=== PATIENT | female | born 2000 | race Caucasian/White ===

== ENCOUNTER 2018-08-14 03:50 | Emergency (ER) | payer OTHER ==
[2018-08-14] MEDS ORDERED: Augmentin 875-125 Tablet ONE (04:19)
[2018-08-14] MEDS ORDERED: Tylenol #3 Tablet ONE (04:19)
[2018-08-14] MEDS: Augmentin 875-125 Tablet PO ONE (04:20)
[2018-08-14] MEDS: Tylenol #3 Tablet PO ONE (04:20)
--- NOTE | 2018-08-14 04:23 | ERPHSYRPT ---
- History of Present Illness Time Seen by Provider: 08/14/18 04:03 Source: patient Exam Limitations: clinical condition Patient Subjective Stated Complaint: pt states she has been having pain in her rt ear, increasing tonight Triage Nursing Assessment: pt alert and oriented, answers questions approp, respirations nonlabored with lungs. pt ambulatory with steady gait noted. no drainage noted from ear. Physician History: PATIENT COMPLAINS OF A RIGHT EAR ACHE FOR 4 DAYS. DENIES SORETHROAT, NASAL CONGESTION, FEVER, CHILLS OR DRAINAGE FROM HER EAR. Timing/Duration: gradual onset Severity: moderate ENT Location: ear (R) Prearrival Treatment: no prearrival treatment Modifying Factors: Improves With: nothing Associated Symptoms: denies symptoms Allergies/Adverse Reactions: No Known Drug Allergies Allergy (Verified 08/14/18 04:10) Home Medications: Dextroamphetamine/Amphetamine [Dextroamp-Amphetamin 30 mg Tab] 1 tab PO BID 10/31 [History] Naproxen 375 mg [Naprosyn 375 mg] 375 mg PO BID 08/14/18 [History] Hx Tetanus, Diphtheria Vaccination/Date Given: Yes Hx Influenza Vaccination/Date Given: Yes Hx Pneumococcal Vaccination/Date Given: No Immunizations Up to Date: Yes - Review of Systems Constitutional: No Symptoms Eyes: No Symptoms Ears, Nose, & Throat: Ear Pain Respiratory: No Symptoms Cardiac: No Symptoms Genitourinary Symptoms: No Symptoms Musculoskeletal: No Symptoms Psychological: No Symptoms Endocrine: No Symptoms - Past Medical History Pertinent Past Medical History: Yes Neurological History: No Pertinent History, Other Cardiac History: No Pertinent History Respiratory History: Asthma Endocrine Medical History: No Pertinent History Musculoskeletal History: No Pertinent History Female Reproductive Disorders: Menstrual Problems, Other Other Medical History: ADD, PCOS - Past Surgical History Past Surgical History: No - Social History Smoking Status: Never smoker Exposure to second hand smoke: Yes Drug Use: none Patient Lives Alone: No - Female History Hx Last Menstrual Period: october- irregular Hx Now: No - Nursing Vital Signs Nursing Vital Signs: Initial Vital Signs Temperature 98.3 F 08/14/18 03:57 Pulse Rate 95 H 08/14/18 03:57 Respiratory Rate 18 08/14/18 03:57 Blood Pressure 141/87 08/14/18 03:57 O2 Sat by Pulse Oximetry 98 08/14/18 03:57 Pain Scale Pain Intensity 8 - Physical Exam General Appearance: no apparent distress Eye Exam: bilateral eye: normal inspection, PERRL Ear Exam: right ear: TM red, left ear: TM normal, bilateral ear: auricle normal , canal normal Nasal Exam: normal inspection Throat Exam: normal, pharynx normal Neck Exam: normal inspection, non-tender Cardiovascular/Respiratory Exam: chest non-tender, normal breath sounds Neurologic Exam: alert, oriented x 3 SpO2 Interpretation: normal SpO2: 98 Ordered Tests: Medication Summary Generic Name Dose Route Start Last Admin Trade Name Freq PRN Reason Stop Dose Admin Amoxicillin/Clavulanate Potassium 875 mg 08/14/18 04:16 Augmentin 875-125 Tablet PO 08/14/18 04:17 STAT ONE - Progress Progress: pain not gone completely Progress Note: 08/14/18 04:20 ADMINISTERED TYLENOL #3 AND AUGMENTIN 875MG ORALLY Counseled pt/family regarding: lab results, diagnosis - Departure Time of Disposition: 04:30 Departure Disposition: Home Clinical Impression: RIGHT OTITIS MEDIA Condition: Stable Critical Care Time: No Referrals: JAGDEEP DESHPANDE [Primary Care Provider] - Additional Instructions: ANTIBIOTIC AUGMENTIN 875MG TWICE DAILY FOR 10 DAYS. TYLENOL #3 EVERY 6 HOURS NEEDED FOR PAIN. CONSULT YOUR PRIMARY CARE PROVIDER FOR FOLLOWUP IN 1 WEEK. Prescriptions: Codeine Phosphate/APAP #3 [Tylenol #3 Tablet] 1 tab PO Q6HPRN PRN #8 tablet PRN Reason: Pain Amox Tr/Potass Clav. 875 mg [Augmentin 875-125 Tablet] 875 mg PO BID #20 tablet
[2018-08-14 04:47] VITALS: BP 133/74; PULSE 78; O2SAT 96
== END 2018-08-14 04:46 | disposition home or self-care (01) ==
LOC: ED 03:50
DX: H66.91 Otitis media, unspecified, right ear (principal)
CPT/HCPCS: 99283; A9270-GY

== ENCOUNTER 2018-08-21 04:47 | Emergency (ER) | payer OTHER ==
[2018-08-21 05:01] VITALS: O2SAT 98
--- NOTE | 2018-08-21 05:14 | ERPHSYRPT ---
- History of Present Illness Time Seen by Provider: 08/21/18 05:09 Source: patient, family Exam Limitations: no limitations Patient Subjective Stated Complaint: pt states she has had an earache for over a week and has not gotten any better with antibiotics. states pain is now around eye and down the rit side of her face as well Triage Nursing Assessment: pt alert and oriented, answers questions approp. pt ambulatory with steady gait ntoed. respirations nonlabored with lungs cta. no drainage noted from ear. pt reports no difficulty hearing. Physician History: pt continues to have right ear pain even on ab- tm appears dull but not red , canal is some swollen but only mildly tender, no jaw tenderness or symptoms, pharynx clear and ant neck nontender, digastric triangle is soft and no sore throat symptoms. no resp symptoms no cp, or abd pain no meningismus. Timing/Duration: days Severity: moderate ENT Location: ear (R) Prearrival Treatment: prescription meds Modifying Factors: Improves With: nothing Associated Symptoms: ear pain (R), No cough, No ear drainage, No facial pain/ swelling, No headache, No jaw pain, No poor fluid intake, No poor solids intake , No sore throat, No tooth pain Allergies/Adverse Reactions: No Known Drug Allergies Allergy (Verified 08/21/18 05:02) Home Medications: Dextroamphetamine/Amphetamine [Dextroamp-Amphetamin 30 mg Tab] 1 tab PO BID 10/31 [History] Naproxen 375 mg [Naprosyn 375 mg] 375 mg PO BID 08/14/18 [History] Hx Tetanus, Diphtheria Vaccination/Date Given: Yes Hx Influenza Vaccination/Date Given: Yes Hx Pneumococcal Vaccination/Date Given: No - Review of Systems Constitutional: No Fever, No Chills Eyes: No Symptoms Ears, Nose, & Throat: Ear Pain Respiratory: No Cough, No Dyspnea Cardiac: No Chest Pain, No Edema, No Syncope Abdominal/Gastrointestinal: No Abdominal Pain, No Nausea, No Vomiting, No Diarrhea Genitourinary Symptoms: No Dysuria Musculoskeletal: No Back Pain, No Neck Pain Skin: No Rash Neurological: No Dizziness, No Focal Weakness, No Sensory Changes Psychological: No Symptoms Endocrine: No Symptoms All Other Systems: Reviewed and Negative - Past Medical History Pertinent Past Medical History: Yes Neurological History: No Pertinent History, Other Cardiac History: No Pertinent History Respiratory History: Asthma Endocrine Medical History: No Pertinent History Musculoskeletal History: No Pertinent History Female Reproductive Disorders: Menstrual Problems, Other Other Medical History: ADD, PCOS - Past Surgical History Past Surgical History: No - Social History Smoking Status: Never smoker Exposure to second hand smoke: Yes Drug Use: none Patient Lives Alone: No - Female History Hx Last Menstrual Period: 6 mos- irreg Hx Now: No - Nursing Vital Signs Nursing Vital Signs: Initial Vital Signs Temperature 97.8 F 08/21/18 04:54 Pulse Rate 68 08/21/18 04:54 Respiratory Rate 18 08/21/18 04:54 Blood Pressure 130/90 08/21/18 04:54 O2 Sat by Pulse Oximetry 98 08/21/18 04:54 Pain Scale Pain Intensity 10 - Physical Exam General Appearance: no apparent distress, alert Eye Exam: bilateral eye: normal inspection, PERRL, EOMI Ear Exam: right ear: TM dull, left ear: canal normal, TM normal, bilateral ear: auricle normal Nasal Exam: normal inspection Throat Exam: pharynx normal, moist mucus membranes, No dental tenderness, No mandibular swelling, No maxillary swelling, No pharynx swelling, No pharynx tenderness, No tongue swollen, No tonsillar exudate, No trismus, No uvula swelling, No voice changes Neck Exam: supple Cardiovascular/Respiratory Exam: normal breath sounds, regular rate/rhythm Abdominal Exam: non-tender, soft Neurologic Exam: alert, oriented x 3, sensation nml, No motor deficits Skin Exam: normal color, warm, dry SpO2: 98 Oxygen Delivery: Room Air - Course Nursing assessment & vital signs reviewed: Yes - Progress Progress: improved, re-examined Counseled pt/family regarding: diagnosis, need for follow-up - Departure Time of Disposition: 05:13 Departure Disposition: Home Clinical Impression: Persistent acute otitis media Condition: Good Critical Care Time: No Referrals: JAGDEEP DESHPANDE [Primary Care Provider] - Instructions: Ear Infections (Otitis Media) (DC), Outer Ear Infection (DC) Additional Instructions: although this may be a persisting ear infection , further evaluation by an ENT specialist would be a good idea and they may require furhter types of tests. return meantime if any vomiting, fever, trouble swallowing or other concerns. Prescriptions: Cefdinir [Omnicef] 300 mg PO BID #20 capsule Ciprofloxacin/Hydrocortisone [Cipro Hc Otic Suspension] 10 ml OT BID #1 drops.susp Hydrocodone Bit/Acetaminophen [[place] 5-325 Tablet] 1 each PO Q4-6HPRN PRN #14 tablet MDD 4 PRN Reason: Pain
[2018-08-21 05:45] VITALS: BP 107/76; PULSE 65
== END 2018-08-21 05:44 | disposition home or self-care (01) ==
LOC: ED 04:47
DX: H66.91 Otitis media, unspecified, right ear (principal)
CPT/HCPCS: 99283

== ENCOUNTER 2020-03-28 16:23 | Emergency (ER) | payer OTHER ==
[2020-03-28] MEDS ORDERED: BABY ASPIRIN 81 MG CHEW PO ONE (16:51)
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
[2020-03-28 17:51] LABS: ALBUMIN 4.4 g/dL (3.5-5.0); ALKALINE PHOSPHATASE 98 U/L (38-126); ANION GAP 12.2 MEQ/L (5-15); BLOOD UREA NITROGEN 11 mg/dL (7-17); CHLORIDE 108 mmol/L (98-107); Calcium 9.4 mg/dL (8.4-10.2); Carbon Dioxide 23 mmol/L (22-30); Creatinine 1 0.69 mg/dL (0.52-1.04); Glucose 90 mg/dL (74-106); Potassium 4.1 mmol/L (3.5-5.1); SGOT/AST 39 U/L (14-36); SGPT/ALT 54 U/L (0-35); SODIUM 139 mmol/L (137-145); Total Protein 7.8 g/dL (6.3-8.2)
[2020-03-28 17:53] LABS: Absolute Neutrophil Ct (ANC) 6.66 (1.4-6.9); BASOPHIL % 0.3 % (0.0-0.4); Basophil (Absolute #) 0.03 (0-0.4); Eosinophil % 2.7 % (0.00-5.0); Eosinophil (Absolute #) 0.26 (0-0.5); Hematocrit 41.5 % (35-47); Hemoglobin 13.7 gm/dl (12.0-16.0); Lymphocyte (Absolute #) 2.36 (1.0-4.6); Lymphocytes % 24.1 % (24.0-44.0); Mean Cell Volume 86.8 fl (78-100); Mean Corpuscular Hemoglobin 28.7 pg (26-32); Mean Platelet Volume 9.8 fl (7.5-11.0); Monocytes % 5.1 % (0.0-12.0); Neutrophil % 67.8 % (36.0-66.0); Platelet Count 363 K/mm3 (150-450); Red Blood Count 4.78 M/mm3 (4.1-5.4); Red Cell Distribution Width 13.9 % (11.5-14.0); White Blood Count 9.8 K/mm3 (4.0-10.5)
[2020-03-28 18:27] VITALS: O2SAT 97
[2020-03-28 18:39] VITALS: BP 104/70; PULSE 77
--- NOTE | 2020-03-29 08:34 | XRAY ---
Indication: Left chest pain and left arm numbness. Comparison: None Portable chest demonstrates normal heart, lungs, and bony thorax.
== END 2020-03-28 18:40 | disposition home or self-care (01) ==
LOC: ED 16:23
DX: R07.9 Chest pain, unspecified (principal)
CPT/HCPCS: 36000; 36415; 71045; 80053; 84484; 85025; 85379; 93005; 93041; 94760; 99284; A9270-GY

== ENCOUNTER 2020-04-27 17:29 | Emergency (ER) | payer OTHER ==
[2020-04-27 17:57] LABS: Absolute Neutrophil Ct (ANC) 6.61 (1.4-6.9); BASOPHIL % 0.5 % (0.0-0.4); Basophil (Absolute #) 0.05 (0-0.4); Eosinophil % 3.5 % (0.00-5.0); Eosinophil (Absolute #) 0.34 (0-0.5); Hematocrit 40.7 % (35-47); Hemoglobin 13.5 gm/dl (12.0-16.0); Lymphocytes % 24.4 % (24.0-44.0); Mean Cell Volume 85.3 fl (78-100); Mean Corpuscular Hemoglobin 28.3 pg (26-32); Mean Corpuscular Hgb Concent. 33.2 g/dl (32-36); Mean Platelet Volume 9.6 fl (7.5-11.0); Monocyte (Absolute #) 0.43 (0.0-1.3); Monocytes % 4.4 % (0.0-12.0); Neutrophil % 67.2 % (36.0-66.0); Platelet Count 344 K/mm3 (150-450); Red Blood Count 4.77 M/mm3 (4.1-5.4); Red Cell Distribution Width 13.3 % (11.5-14.0); White Blood Count 9.8 K/mm3 (4.0-10.5)
[2020-04-27 18:01] LABS: Appearance SLIGHTLY CLOUDY (CLEAR); Bilirubin NEGATIVE (NEGATIVE); Blood SMALL Ery/ul (0-5); Epithelial Cells RARE /HPF (FEW); Glucose NEGATIVE (NEGATIVE); Ketones NEGATIVE (NEGATIVE); Leukocyte Esterase NEGATIVE (NEGATIVE); Mucus SLIGHT /HPF (NEGATIVE); Nitrite NEGATIVE (NEGATIVE); Protein,Urine Dip NEGATIVE (Negative); RBC 0-2 /HPF (0-2); Specific Gravity 1.016 (1.005-1.025); Urobilinogen NEGATIVE mg/dL (0-1)
[2020-04-27 18:08] LABS: ALBUMIN 4.3 g/dL (3.5-5.0); ALKALINE PHOSPHATASE 101 U/L (38-126); ANION GAP 14.3 MEQ/L (5-15); BLOOD UREA NITROGEN 10 mg/dL (7-17); CHLORIDE 106 mmol/L (98-107); Calcium 9.7 mg/dL (8.4-10.2); Carbon Dioxide 22 mmol/L (22-30); Creatinine 1 0.55 mg/dL (0.52-1.04); Glucose 124 mg/dL (74-106); Potassium 3.9 mmol/L (3.5-5.1); SGOT/AST 34 U/L (14-36); SGPT/ALT 48 U/L (0-35); SODIUM 139 mmol/L (137-145); Total Protein 7.4 g/dL (6.3-8.2)
[2020-04-27 18:09] LABS: ACETAMINOPHEN < 10 ug/ml (10-30); ETHYL ALCOHOL < 10 mg/dL (0-10); SALICYLATE < 1.0 mg/dL (2-20)
[2020-04-27 18:12] LABS: Amphetamine,Urine NEGATIVE (NEGATIVE); Barbiturate,Urine NEGATIVE (NEGATIVE); Benzodiazepine,Urine NEGATIVE (NEGATIVE); Cocaine,Urine NEGATIVE (NEGATIVE); Methadone,Urine NEGATIVE (NEGATIVE); Opiate,Urine NEGATIVE (NEGATIVE); PCP,Urine NEGATIVE (NEGATIVE); THC,Urine NEGATIVE (NEGATIVE)
--- NOTE | 2020-04-27 18:22 | ERPHSYRPT ---
- History of Present Illness Time Seen by Provider: 04/27/20 17:38 Source: patient, EMS Exam Limitations: no limitations Patient Subjective Stated Complaint: PT states "I was really close to taking all my meds and overdosing. I want help. I am afraid I will kill myself." Triage Nursing Assessment: Pt presented alert and oriented X 3, skin pwd Pt ambulates with an upright steady gait, able to speak in clear full sentences pt in no apparent respiratory distress. Pt slightly anxious. Physician History: 19 years old female with history of anxiety depression is brought in the ER via EMS with chief complaint of suicidal ideations. Patient reports she was having low mood since yesterday and prior to arrival she was planning on ingesting all her medication to put her to sleep forever. She reports feeling hopeless and helpless at times, does not see things will get better and near future. Although patient could not tell me exact reason why she is feeling depressed. Denies any homicidal ideations. Denies any drug or alcohol abuse. Timing/Duration: today, gradual onset, worse Severity of Symptoms-Max: moderate Severity of Symptoms-Current: moderate Suicidal thoughts: specific plan Associated Symptoms: anxiety, depressed Previous symptoms: same symptoms as today Allergies/Adverse Reactions: sweet potato Allergy (Intermediate, Verified 04/27/20 17:39) Hives cephalexin [From Keflex] Adverse Reaction (Intermediate, Verified 04/27/20 17:39) nausea vomiting Home Medications: Albuterol 2.5 mg/3 ml Neb [Proventil 2.5 mg/3 ml Neb] 2.5 mg IH Q4HPRN PRN 04/19/19 [History] Albuterol 8 gm Mdi Hfa [Ventolin Hfa MDI] 18 gm IH Q4H PRN PRN 04/19/19 [History] Sertraline HCl [Zoloft] 20 mg PO DAILY 04/19/19 [History] Cholecalciferol (Vitamin D3) [Vitamin D] 1,000 unit PO WEEKLY 06/15/19 [History] Quetiapine Fumarate [Seroquel] 25 mg PO HS 06/15/19 [History] Dicyclomine HCl 20 mg [Bentyl 20 mg] 20 mg PO DAILY 04/27/20 [History] Loratadine 10 mg PO DAILY 04/27/20 [History] Hx Tetanus, Diphtheria Vaccination/Date Given: No Hx Influenza Vaccination/Date Given: No Hx Pneumococcal Vaccination/Date Given: No Immunizations Up to Date: Yes Travel Risk - International Travel Have you traveled outside of the country in past 3 weeks: No - Coronavirus Screening Are you exhibiting any of the following symptoms?: No Close contact with a COVID-19 positive Pt in past 14-21 Days: No - Past Medical History Pertinent Past Medical History: Yes Neurological History: Other ENT History: Other Cardiac History: No Pertinent History Respiratory History: Asthma Endocrine Medical History: No Pertinent History Musculoskeletal History: No Pertinent History GI Medical History: Gallbladder Disease History: No Pertinent History Psycho-Social History: Anxiety, Bipolar, Depression Female Reproductive Disorders: Menstrual Problems, Other Other Medical History: ADD,ADHD, Autism,Asburgers syndrome,bipolar,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 PCOS. gender dysphoria. angina - Past Surgical History Past Surgical History: Yes Neuro Surgical History: No Pertinent History Cardiac: No Pertinent History Respiratory: No Pertinent History Gastrointestinal: No Pertinent History Genitourinary: No Pertinent History Musculoskeletal: Orthopedic Surgery Female Surgical History: No Pertinent History Other Surgical History: Right knee miniscus repair endoscopy - Social History Smoking Status: Never smoker Exposure to second hand smoke: Yes Drug Use: none Patient Lives Alone: No - Female History Hx Last Menstrual Period: pcos Hx Now: No - Review of Systems Constitutional: No Symptoms Eyes: No Symptoms Ears, Nose, & Throat: No Symptoms Respiratory: No Symptoms Cardiac: No Symptoms Abdominal/Gastrointestinal: No Symptoms Genitourinary Symptoms: No Symptoms Musculoskeletal: No Symptoms Skin: No Symptoms Neurological: No Symptoms Psychological: Anxiety, Depression, Suicidal Ideations, No Homicidal Ideations Endocrine: No Symptoms Hematologic/Lymphatic: No Symptoms Immunological/Allergic: No Symptoms - Nursing Vital Signs Nursing Vital Signs: Initial Vital Signs Temperature 99.4 F 04/27/20 17:31 Pulse Rate 90 04/27/20 17:31 Respiratory Rate 22 04/27/20 17:31 Blood Pressure 160/92 04/27/20 17:31 O2 Sat by Pulse Oximetry 98 04/27/20 17:31 Pain Scale Pain Intensity 0 - Physical Exam General Appearance: no apparent distress, alert, anxiety Eyes, Ears, Nose, Throat Exam: normal ENT inspection, pharynx normal Neck Exam: normal inspection, supple, full range of motion Respiratory Exam: normal breath sounds, lungs clear Cardiovascular Exam: regular rate/rhythm, normal heart sounds Gastrointestinal/Abdominal Exam: soft, normal bowel sounds, No tenderness Neurological Exam: alert, 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, 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, oriented x 3, depressed affect Appearance: appropriate appearance, appropriate insight Behavior/Eye Contact/Speech: alert & cooperative, cooperative, normal speech, avoids eye contact Thoughts/Hallucinations: normal thought pattern, no apparent hallucination Skin Exam: normal color SpO2 Interpretation: normal SpO2: 98 O2 Delivery: Room Air Ordered Tests: Active Orders 24 hr Category Date Time Status ACETAMINOPHEN Stat Lab 04/27/20 17:45 Completed CBC W DIFF Stat Lab 04/27/20 17:45 Completed CMP Stat Lab 04/27/20 17:45 Completed ETHYL ALCOHOL Stat Lab 04/27/20 17:45 Completed HCG,QUALITATIVE URINE Stat Lab 04/27/20 17:45 Completed SALICYLATE Stat Lab 04/27/20 17:45 Completed UA W/RFX UR CULTURE Stat Lab 04/27/20 17:45 Completed Urine Triage Profile Stat Lab 04/27/20 17:45 Completed Lab/Rad Data: Laboratory Result Diagrams 04/27/20 17:45 04/27/20 17:45 Laboratory Results 04/27/20 04/27/20 04/27/20 Range/Units 17:45 17:45 17:45 WBC (4.0-10.5) K/mm3 RBC (4.1-5.4) M/mm3 Hgb (12.0-16.0) gm/dl Hct (35-47) % MCV (78-100) fl MCH (26-32) pg MCHC (32-36) g/dl RDW (11.5-14.0) % Plt Count (150-450) K/mm3 MPV (7.5-11.0) fl Gran % (36.0-66.0) % Eos # (Auto) (0-0.5) Absolute Lymphs (auto) (1.0-4.6) Absolute Monos (auto) (0.0-1.3) Lymphocytes % (24.0-44.0) % Monocytes % (0.0-12.0) % Eosinophils % (0.00-5.0) % Basophils % (0.0-0.4) % Absolute Granulocytes (1.4-6.9) Basophils # (0-0.4) Sodium (137-145) mmol/L Potassium (3.5-5.1) mmol/L Chloride (98-107) mmol/L Carbon Dioxide (22-30) mmol/L Anion Gap (5-15) MEQ/L BUN (7-17) mg/dL Creatinine (0.52-1.04) mg/dL Estimated GFR ML/MIN Glucose (74-106) mg/dL Calcium (8.4-10.2) mg/dL Total Bilirubin (0.2-1.3) mg/dL AST (14-36) U/L ALT (0-35) U/L Alkaline Phosphatase (38-126) U/L Serum Total Protein (6.3-8.2) g/dL Albumin (3.5-5.0) g/dL Urine Color YELLOW (YELLOW) Urine Appearance SLIGHTLY CLOUDY (CLEAR) Urine pH 6.0 (5-6) Ur Specific [place] 1.016 (1.005-1.025) Urine Protein NEGATIVE (Negative) Urine Ketones NEGATIVE (NEGATIVE) Urine Blood SMALL (0-5) Wade/ul Urine Nitrite NEGATIVE (NEGATIVE) Urine Bilirubin NEGATIVE (NEGATIVE) Urine Urobilinogen NEGATIVE (0-1) mg/dL Ur Leukocyte Esterase NEGATIVE (NEGATIVE) Urine WBC (Auto) NONE (0-5) /HPF Urine RBC (Auto) 0-2 (0-2) /HPF U Epithel Cells (Auto) RARE (FEW) /HPF Urine Bacteria (Auto) NONE (NEGATIVE) /HPF Urine Mucus (Auto) SLIGHT (NEGATIVE) /HPF Urine Culture Reflexed NO (NO) Urine Glucose NEGATIVE (NEGATIVE) mg/dL Urine HCG, Qual NEGATIVE (Negative) Salicylates (2-20) mg/dL Urine Opiates Level NEGATIVE (NEGATIVE) Ur Methadone NEGATIVE (NEGATIVE) Acetaminophen (10-30) ug/ml Urine Barbiturates NEGATIVE (NEGATIVE) Ur Phencyclidine (PCP) NEGATIVE (NEGATIVE) Urine Amphetamine NEGATIVE (NEGATIVE) U Benzodiazepine Level NEGATIVE (NEGATIVE) Urine Cocaine NEGATIVE (NEGATIVE) Urine Marijuana (THC) NEGATIVE (NEGATIVE) Ethyl Alcohol (0-10) mg/dL 04/27/20 04/27/20 Range/Units 17:45 17:45 WBC 9.8 (4.0-10.5) K/mm3 RBC 4.77 (4.1-5.4) M/mm3 Hgb 13.5 (12.0-16.0) gm/dl Hct 40.7 (35-47) % MCV 85.3 (78-100) fl MCH 28.3 (26-32) pg MCHC 33.2 (32-36) g/dl RDW 13.3 (11.5-14.0) % Plt Count 344 (150-450) K/mm3 MPV 9.6 (7.5-11.0) fl Gran % 67.2 H (36.0-66.0) % Eos # (Auto) 0.34 (0-0.5) Absolute Lymphs (auto) 2.40 (1.0-4.6) Absolute Monos (auto) 0.43 (0.0-1.3) Lymphocytes % 24.4 (24.0-44.0) % Monocytes % 4.4 (0.0-12.0) % Eosinophils % 3.5 (0.00-5.0) % Basophils % 0.5 (0.0-0.4) % Absolute Granulocytes 6.61 (1.4-6.9) Basophils # 0.05 (0-0.4) Sodium 139 (137-145) mmol/L Potassium 3.9 (3.5-5.1) mmol/L Chloride 106 (98-107) mmol/L Carbon Dioxide 22 (22-30) mmol/L Anion Gap 14.3 (5-15) MEQ/L BUN 10 (7-17) mg/dL Creatinine 0.55 (0.52-1.04) mg/dL Estimated GFR > 60.0 ML/MIN Glucose 124 H (74-106) mg/dL Calcium 9.7 (8.4-10.2) mg/dL Total Bilirubin 0.40 (0.2-1.3) mg/dL AST 34 (14-36) U/L ALT 48 H (0-35) U/L Alkaline Phosphatase 101 (38-126) U/L Serum Total Protein 7.4 (6.3-8.2) g/dL Albumin 4.3 (3.5-5.0) g/dL Urine Color (YELLOW) Urine Appearance (CLEAR) Urine pH (5-6) Ur Specific [place] (1.005-1.025) Urine Protein (Negative) Urine Ketones (NEGATIVE) Urine Blood (0-5) Wade/ul Urine Nitrite (NEGATIVE) Urine Bilirubin (NEGATIVE) Urine Urobilinogen (0-1) mg/dL Ur Leukocyte Esterase (NEGATIVE) Urine WBC (Auto) (0-5) /HPF Urine RBC (Auto) (0-2) /HPF U Epithel Cells (Auto) (FEW) /HPF Urine Bacteria (Auto) (NEGATIVE) /HPF Urine Mucus (Auto) (NEGATIVE) /HPF Urine Culture Reflexed (NO) Urine Glucose (NEGATIVE) mg/dL Urine HCG, Qual (Negative) Salicylates < 1.0 L (2-20) mg/dL Urine Opiates Level (NEGATIVE) Ur Methadone (NEGATIVE) Acetaminophen < 10 L (10-30) ug/ml Urine Barbiturates (NEGATIVE) Ur Phencyclidine (PCP) (NEGATIVE) Urine Amphetamine (NEGATIVE) U Benzodiazepine Level (NEGATIVE) Urine Cocaine (NEGATIVE) Urine Marijuana (THC) (NEGATIVE) Ethyl Alcohol < 10 (0-10) mg/dL - Progress Progress: unchanged Progress Note: 04/27/20 she is medically cleared. Evaluated by behavioral health and patient is accepted by Dr. Oglesby. Counseled pt/family regarding: lab results, diagnosis - Departure Departure Disposition: Transfer Clinical Impression: Depression with suicidal ideation Condition: Stable Critical Care Time: No Referrals: JAGDEEP DESHPANDE [Primary Care Provider] -
[2020-04-27 19:59] VITALS: BP 124/73; PULSE 86
[2020-04-27 23:38] VITALS: O2SAT 98
== END 2020-04-27 20:58 ==
LOC: ED 17:29
DX: F32.9 Major depressive disorder, single episode, unspecified (principal); R45.851 Suicidal ideations; Z79.899 Other long term (current) drug therapy
CPT/HCPCS: 36415; 80053; 80307; 81001; 84703; 85025; 99285; G0480

== ENCOUNTER 2020-05-13 22:10 | Emergency (ER) | payer OTHER ==
--- NOTE | 2020-05-13 22:17 | ERPHSYRPT ---
- History of Present Illness Source: patient, EMS Exam Limitations: no limitations Timing/Duration: today Severity of Symptoms-Max: mild Severity of Symptoms-Current: mild Suicidal thoughts: other (Specifically stating that she has had feelings of the suicidal ideation. However she is vague about a specific plan although she mentions that she might consider taking an overdose of her medication) Associated Symptoms: depressed, suicidal ideation Previous symptoms: same symptoms as today Hx Tetanus, Diphtheria Vaccination/Date Given: No Hx Influenza Vaccination/Date Given: No Hx Pneumococcal Vaccination/Date Given: No <RENETTA FAGAN - Last Filed: 05/14/20 06:52> <JOSE ALBERTO MCKINLEY - Last Filed: 05/14/20 10:11> - History of Present Illness Time Seen by Provider: 05/13/20 22:17 Physician History: This is a 19-year-old obese white female who has known history of depression with suicidal ideation in the past and is taking Zoloft and Seroquel medication, and presents with recurrent episode of depression suicidal ideation. Patient was relatively recently seen and discharged from [facility] psychiatric facility. Patient sees a psychiatrist from [facility] as an outpatient. Patient began having recurrent symptoms of suicidal ideation. She states that she does not have a specific plan but then states that she may take an excess amount of her medication. She also has some cutting issues to her right wrist. (RENETTA FAGAN) Allergies/Adverse Reactions: sweet potato Allergy (Intermediate, Verified 05/13/20 22:26) Hives cephalexin [From Keflex] Adverse Reaction (Intermediate, Verified 05/13/20 22:26) nausea vomiting Home Medications: Albuterol 2.5 mg/3 ml Neb [Proventil 2.5 mg/3 ml Neb] 2.5 mg IH Q4HPRN PRN 04/19/19 [History] Albuterol 8 gm Mdi Hfa [Ventolin Hfa MDI] 18 gm IH Q4H PRN PRN 04/19/19 [History] Sertraline HCl [Zoloft] 150 mg PO HS 04/19/19 [History] Cholecalciferol (Vitamin D3) [Vitamin D] 1,000 unit PO WEEKLY 06/15/19 [History] Quetiapine Fumarate [Seroquel] 50 mg PO HS 06/15/19 [History] Dicyclomine HCl 20 mg [Bentyl 20 mg] 20 mg PO QID PRN 04/27/20 [History] Loratadine 10 mg PO DAILY 04/27/20 [History] Travel Risk - International Travel Have you traveled outside of the country in past 3 weeks: No - Coronavirus Screening Are you exhibiting any of the following symptoms?: No Close contact with a COVID-19 positive Pt in past 14-21 Days: No <RENETTA FAGAN - Last Filed: 05/14/20 06:52> - Past Medical History Pertinent Past Medical History: Yes Neurological History: Other ENT History: Other Cardiac History: No Pertinent History Respiratory History: Asthma Endocrine Medical History: No Pertinent History Musculoskeletal History: No Pertinent History GI Medical History: Gallbladder Disease History: No Pertinent History Psycho-Social History: Anxiety, Bipolar, Depression Female Reproductive Disorders: Menstrual Problems, Other Other Medical History: ADD,ADHD, Autism,Asburgers syndrome,bipolar,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 PCOS. gender dysphoria. angina - Past Surgical History Past Surgical History: Yes Neuro Surgical History: No Pertinent History Cardiac: No Pertinent History Respiratory: No Pertinent History Gastrointestinal: No Pertinent History Genitourinary: No Pertinent History Musculoskeletal: Orthopedic Surgery Female Surgical History: No Pertinent History Other Surgical History: Right knee miniscus repair endoscopy - Social History Smoking Status: Never smoker Exposure to second hand smoke: Yes Drug Use: none Patient Lives Alone: No <RENETTA FAGAN - Last Filed: 05/14/20 06:52> - Review of Systems Constitutional: No Symptoms Eyes: No Symptoms Ears, Nose, & Throat: No Symptoms Respiratory: No Symptoms Cardiac: No Symptoms Abdominal/Gastrointestinal: No Symptoms Genitourinary Symptoms: No Symptoms Musculoskeletal: No Symptoms Skin: No Symptoms Neurological: No Symptoms Psychological: No Symptoms Endocrine: No Symptoms Hematologic/Lymphatic: No Symptoms Immunological/Allergic: No Symptoms All Other Systems: Reviewed and Negative <RENETTA FAGAN - Last Filed: 05/14/20 06:52> - Physical Exam General Appearance: no apparent distress, alert, anxiety, obese Eyes, Ears, Nose, Throat Exam: normal ENT inspection, moist mucous membranes Neck Exam: normal inspection, non-tender, supple, full range of motion Respiratory Exam: normal breath sounds, lungs clear, airway intact, No chest tenderness, No respiratory distress Cardiovascular Exam: regular rate/rhythm, normal heart sounds, normal peripheral pulses Gastrointestinal/Abdominal Exam: soft, normal bowel sounds, No tenderness Extremities Exam: normal inspection, normal range of motion, No evidence of injury Current Suicidality: other (Patient is vague with the plan but definitely is having suicidal thoughts) Neurological Exam: alert, normal mood/affect, 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, 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, oriented x 3 Appearance: appropriate appearance, impaired insight Behavior/Eye Contact/Speech: alert & cooperative, good eye contact, normal speech Thoughts/Hallucinations: normal thought pattern, no apparent hallucination Skin Exam: normal color, warm, dry SpO2 Interpretation: normal O2 Delivery: Room Air <RENETTA FAGAN - Last Filed: 05/14/20 06:52> - Nursing Vital Signs Nursing Vital Signs: Initial Vital Signs Pulse Rate 83 05/13/20 22:14 Respiratory Rate 18 05/13/20 22:14 Blood Pressure 160/109 05/13/20 22:14 O2 Sat by Pulse Oximetry 98 05/13/20 22:14 Pain Scale Pain Intensity 0 - Course Nursing assessment & vital signs reviewed: Yes EKG Interpreted by Me: RATE (75), Sinus Rhythm, NORMAL AXIS, NORMAL INTERVALS, NORMAL QRS, Other (No ischemic changes) <RENETTA FAGAN - Last Filed: 05/14/20 06:52> Ordered Tests: Active Orders 24 hr Category Date Time Status EKG-ER Only STAT Care 05/13/20 22:17 Active Psychiatric Consult STAT Cons 05/13/20 22:17 Active House Regular Diet Diet 05/14/20 Lunch Active ACETAMINOPHEN Stat Lab 05/13/20 22:35 Completed CBC W DIFF Stat Lab 05/13/20 22:35 Completed CBC W DIFF Stat Lab 05/14/20 06:09 Completed CMP Stat Lab 05/13/20 22:35 Completed ETHYL ALCOHOL Stat Lab 05/13/20 22:35 Completed HCG,QUALITATIVE URINE Stat Lab 05/13/20 22:47 Completed SALICYLATE Stat Lab 05/13/20 22:35 Completed UA W/RFX UR CULTURE Stat Lab 05/13/20 22:47 Completed Urine Triage Profile Stat Lab 05/13/20 22:47 Completed Lab/Rad Data: Laboratory Result Diagrams 05/14/20 06:09 05/13/20 22:35 Laboratory Results 05/14/20 05/13/20 05/13/20 Range/Units 06:09 22:47 22:47 WBC 10.6 H (4.0-10.5) K/mm3 RBC 4.23 (4.1-5.4) M/mm3 Hgb 12.2 (12.0-16.0) gm/dl Hct 37.1 (35-47) % MCV 87.7 (78-100) fl MCH 28.8 (26-32) pg MCHC 32.9 (32-36) g/dl RDW 13.8 (11.5-14.0) % Plt Count 299 (150-450) K/mm3 MPV 9.7 (7.5-11.0) fl Gran % 54.2 (36.0-66.0) % Eos # (Auto) 0.44 (0-0.5) Absolute Lymphs (auto) 3.92 (1.0-4.6) Absolute Monos (auto) 0.43 (0.0-1.3) Lymphocytes % 37.0 (24.0-44.0) % Monocytes % 4.1 (0.0-12.0) % Eosinophils % 4.2 (0.00-5.0) % Basophils % 0.5 (0.0-0.4) % Absolute Granulocytes 5.76 (1.4-6.9) Basophils # 0.05 (0-0.4) Sodium (137-145) mmol/L Potassium (3.5-5.1) mmol/L Chloride (98-107) mmol/L Carbon Dioxide (22-30) mmol/L Anion Gap (5-15) MEQ/L BUN (7-17) mg/dL Creatinine (0.52-1.04) mg/dL Estimated GFR ML/MIN Glucose (74-106) mg/dL Calcium (8.4-10.2) mg/dL Total Bilirubin (0.2-1.3) mg/dL AST (14-36) U/L ALT (0-35) U/L Alkaline Phosphatase (38-126) U/L Serum Total Protein (6.3-8.2) g/dL Albumin (3.5-5.0) g/dL Urine Color (YELLOW) Urine Appearance (CLEAR) Urine pH (5-6) Ur Specific [place] (1.005-1.025) Urine Protein (Negative) Urine Ketones (NEGATIVE) Urine Blood (0-5) Wade/ul Urine Nitrite (NEGATIVE) Urine Bilirubin (NEGATIVE) Urine Urobilinogen (0-1) mg/dL Ur Leukocyte Esterase (NEGATIVE) Urine WBC (Auto) (0-5) /HPF Urine RBC (Auto) (0-2) /HPF U Hyaline Cast (Auto) (0-2) /LPF U Epithel Cells (Auto) (FEW) /HPF Urine Bacteria (Auto) (NEGATIVE) /HPF Urine Mucus (Auto) (NEGATIVE) /HPF Urine Culture Reflexed (NO) Urine Glucose (NEGATIVE) mg/dL Urine HCG, Qual NEGATIVE (Negative) Salicylates (2-20) mg/dL Urine Opiates Level NEGATIVE (NEGATIVE) Ur Methadone NEGATIVE (NEGATIVE) Acetaminophen (10-30) ug/ml Urine Barbiturates NEGATIVE (NEGATIVE) Ur Phencyclidine (PCP) NEGATIVE (NEGATIVE) Urine Amphetamine NEGATIVE (NEGATIVE) U Benzodiazepine Level NEGATIVE (NEGATIVE) Urine Cocaine NEGATIVE (NEGATIVE) Urine Marijuana (THC) NEGATIVE (NEGATIVE) Ethyl Alcohol (0-10) mg/dL 05/13/20 05/13/20 05/13/20 Range/Units 22:47 22:35 22:35 WBC 12.2 H (4.0-10.5) K/mm3 RBC 4.58 (4.1-5.4) M/mm3 Hgb 13.2 (12.0-16.0) gm/dl Hct 39.4 (35-47) % MCV 86.0 (78-100) fl MCH 28.8 (26-32) pg MCHC 33.5 (32-36) g/dl RDW 13.8 (11.5-14.0) % Plt Count 349 (150-450) K/mm3 MPV 9.4 (7.5-11.0) fl Gran % 65.1 (36.0-66.0) % Eos # (Auto) 0.39 (0-0.5) Absolute Lymphs (auto) 3.20 (1.0-4.6) Absolute Monos (auto) 0.62 (0.0-1.3) Lymphocytes % 26.2 (24.0-44.0) % Monocytes % 5.1 (0.0-12.0) % Eosinophils % 3.2 (0.00-5.0) % Basophils % 0.4 (0.0-0.4) % Absolute Granulocytes 7.95 H (1.4-6.9) Basophils # 0.05 (0-0.4) Sodium 137 (137-145) mmol/L Potassium 3.9 (3.5-5.1) mmol/L Chloride 104 (98-107) mmol/L Carbon Dioxide 24 (22-30) mmol/L Anion Gap 12.5 (5-15) MEQ/L BUN 10 (7-17) mg/dL Creatinine 0.57 (0.52-1.04) mg/dL Estimated GFR > 60.0 ML/MIN Glucose 101 (74-106) mg/dL Calcium 9.3 (8.4-10.2) mg/dL Total Bilirubin 0.40 (0.2-1.3) mg/dL AST 33 (14-36) U/L ALT 53 H (0-35) U/L Alkaline Phosphatase 105 (38-126) U/L Serum Total Protein 7.5 (6.3-8.2) g/dL Albumin 4.4 (3.5-5.0) g/dL Urine Color YELLOW (YELLOW) Urine Appearance SLIGHTLY CLOUDY (CLEAR) Urine pH 6.0 (5-6) Ur Specific [place] 1.014 (1.005-1.025) Urine Protein NEGATIVE (Negative) Urine Ketones NEGATIVE (NEGATIVE) Urine Blood NEGATIVE (0-5) Wade/ul Urine Nitrite NEGATIVE (NEGATIVE) Urine Bilirubin NEGATIVE (NEGATIVE) Urine Urobilinogen NEGATIVE (0-1) mg/dL Ur Leukocyte Esterase NEGATIVE (NEGATIVE) Urine WBC (Auto) NONE (0-5) /HPF Urine RBC (Auto) NONE (0-2) /HPF U Hyaline Cast (Auto) 0-2 (0-2) /LPF U Epithel Cells (Auto) RARE (FEW) /HPF Urine Bacteria (Auto) NONE (NEGATIVE) /HPF Urine Mucus (Auto) SLIGHT (NEGATIVE) /HPF Urine Culture Reflexed NO (NO) Urine Glucose NEGATIVE (NEGATIVE) mg/dL Urine HCG, Qual (Negative) Salicylates < 1.0 L (2-20) mg/dL Urine Opiates Level (NEGATIVE) Ur Methadone (NEGATIVE) Acetaminophen < 10 L (10-30) ug/ml Urine Barbiturates (NEGATIVE) Ur Phencyclidine (PCP) (NEGATIVE) Urine Amphetamine (NEGATIVE) U Benzodiazepine Level (NEGATIVE) Urine Cocaine (NEGATIVE) Urine Marijuana (THC) (NEGATIVE) Ethyl Alcohol < 10 (0-10) mg/dL - Progress Counseled pt/family regarding: lab results, diagnosis <RENETTA FAGAN - Last Filed: 05/14/20 06:52> - Progress Progress: improved <JOSE ALBERTO MCKINLEY - Last Filed: 05/14/20 10:11> - Progress Progress Note: 05/14/20 06:52 Medical decision making: This patient has been here for several hours awaiting evaluation for possible placement to inpatient psychiatric facility versus being able to be discharged to home for outpatient treatment. We have made several phone calls to different facilities. Many have not had beds. [facility] denied admission. We are waiting for [facility] to call us back. Patient history, condition, laboratory work-up and plan has been discussed with Dr. Mckinley. He will make final disposition. He accepts the patient in transfer care to him at shift change. (RENETTA FAGAN) Patient endorsed to Dr. Mckinley at approximately 7 AM. Patient will be transferred to [facility]. Dr. Parks accepted transfer at 8:45 AM. Associated paperwork/EMTALA form completed. Patient has been well during her stay in our ED. She has been cooperative and pleasant. Patient transferred via BLS ambulance. 05/14/20 10:07 (JOSE ALBERTO MCKINLEY) <RENETTA FAGAN - Last Filed: 05/14/20 06:52> - Departure Departure Disposition: Transfer Critical Care Time: No <JOSE ALBERTO MCKINLEY - Last Filed: 05/14/20 10:11> - Departure Clinical Impression: Suicidal ideation Condition: Stable Referrals: JAGDEEP DESHPANDE [Primary Care Provider] -
[2020-05-13 22:48] LABS: Absolute Neutrophil Ct (ANC) 7.95 (1.4-6.9); BASOPHIL % 0.4 % (0.0-0.4); Basophil (Absolute #) 0.05 (0-0.4); Eosinophil % 3.2 % (0.00-5.0); Eosinophil (Absolute #) 0.39 (0-0.5); Hematocrit 39.4 % (35-47); Hemoglobin 13.2 gm/dl (12.0-16.0); Lymphocytes % 26.2 % (24.0-44.0); Mean Corpuscular Hemoglobin 28.8 pg (26-32); Mean Corpuscular Hgb Concent. 33.5 g/dl (32-36); Mean Platelet Volume 9.4 fl (7.5-11.0); Monocyte (Absolute #) 0.62 (0.0-1.3); Monocytes % 5.1 % (0.0-12.0); Neutrophil % 65.1 % (36.0-66.0); Platelet Count 349 K/mm3 (150-450); Red Blood Count 4.58 M/mm3 (4.1-5.4); Red Cell Distribution Width 13.8 % (11.5-14.0); White Blood Count 12.2 K/mm3 (4.0-10.5)
[2020-05-13 22:53] LABS: ALBUMIN 4.4 g/dL (3.5-5.0); ALKALINE PHOSPHATASE 105 U/L (38-126); ANION GAP 12.5 MEQ/L (5-15); BLOOD UREA NITROGEN 10 mg/dL (7-17); CHLORIDE 104 mmol/L (98-107); Calcium 9.3 mg/dL (8.4-10.2); Carbon Dioxide 24 mmol/L (22-30); Creatinine 1 0.57 mg/dL (0.52-1.04); EST GLOMERULAR FILTRATION RATE > 60.0 ML/MIN; Glucose 101 mg/dL (74-106); Potassium 3.9 mmol/L (3.5-5.1); SGOT/AST 33 U/L (14-36); SGPT/ALT 53 U/L (0-35); SODIUM 137 mmol/L (137-145); Total Protein 7.5 g/dL (6.3-8.2)
[2020-05-13 22:54] LABS: ACETAMINOPHEN < 10 ug/ml (10-30); ETHYL ALCOHOL < 10 mg/dL (0-10); SALICYLATE < 1.0 mg/dL (2-20)
[2020-05-13 23:23] LABS: Appearance SLIGHTLY CLOUDY (CLEAR); Bilirubin NEGATIVE (NEGATIVE); Blood NEGATIVE Ery/ul (0-5); Epithelial Cells RARE /HPF (FEW); Glucose NEGATIVE (NEGATIVE); Hyaline Casts 0-2 /LPF (0-2); Ketones NEGATIVE (NEGATIVE); Leukocyte Esterase NEGATIVE (NEGATIVE); Mucus SLIGHT /HPF (NEGATIVE); Nitrite NEGATIVE (NEGATIVE); Protein,Urine Dip NEGATIVE (Negative); Specific Gravity 1.014 (1.005-1.025); Urobilinogen NEGATIVE mg/dL (0-1)
[2020-05-13 23:27] LABS: Amphetamine,Urine NEGATIVE (NEGATIVE); Barbiturate,Urine NEGATIVE (NEGATIVE); Benzodiazepine,Urine NEGATIVE (NEGATIVE); Cocaine,Urine NEGATIVE (NEGATIVE); Methadone,Urine NEGATIVE (NEGATIVE); Opiate,Urine NEGATIVE (NEGATIVE); PCP,Urine NEGATIVE (NEGATIVE); THC,Urine NEGATIVE (NEGATIVE)
[2020-05-14 06:11] VITALS: O2SAT 98
[2020-05-14 06:20] LABS: Absolute Neutrophil Ct (ANC) 5.76 (1.4-6.9); BASOPHIL % 0.5 % (0.0-0.4); Basophil (Absolute #) 0.05 (0-0.4); Eosinophil % 4.2 % (0.00-5.0); Eosinophil (Absolute #) 0.44 (0-0.5); Hematocrit 37.1 % (35-47); Hemoglobin 12.2 gm/dl (12.0-16.0); Lymphocyte (Absolute #) 3.92 (1.0-4.6); Mean Cell Volume 87.7 fl (78-100); Mean Corpuscular Hemoglobin 28.8 pg (26-32); Mean Corpuscular Hgb Concent. 32.9 g/dl (32-36); Mean Platelet Volume 9.7 fl (7.5-11.0); Monocyte (Absolute #) 0.43 (0.0-1.3); Monocytes % 4.1 % (0.0-12.0); Neutrophil % 54.2 % (36.0-66.0); Platelet Count 299 K/mm3 (150-450); Red Blood Count 4.23 M/mm3 (4.1-5.4); Red Cell Distribution Width 13.8 % (11.5-14.0); White Blood Count 10.6 K/mm3 (4.0-10.5)
[2020-05-14 10:07] VITALS: BP 122/68; PULSE 82
== END 2020-05-14 11:10 | disposition short-term general hospital (02) ==
LOC: ED 22:10
DX: R45.851 Suicidal ideations (principal); F31.9 Bipolar disorder, unspecified; Z79.899 Other long term (current) drug therapy
CPT/HCPCS: 36415; 80053; 80307; 81001; 84703; 85025; 90791; 93005; 99285; G0480

== ENCOUNTER 2020-05-31 20:27 | Emergency (ER) | payer OTHER ==
[2020-05-31 21:30] LABS: Absolute Neutrophil Ct (ANC) 7.57 (1.4-6.9); BASOPHIL % 0.5 % (0.0-0.4); Basophil (Absolute #) 0.06 (0-0.4); Eosinophil (Absolute #) 0.35 (0-0.5); Hematocrit 37.4 % (35-47); Hemoglobin 12.4 gm/dl (12.0-16.0); Lymphocyte (Absolute #) 3.08 (1.0-4.6); Lymphocytes % 26.5 % (24.0-44.0); Mean Cell Volume 87.2 fl (78-100); Mean Corpuscular Hemoglobin 28.9 pg (26-32); Mean Corpuscular Hgb Concent. 33.2 g/dl (32-36); Mean Platelet Volume 9.2 fl (7.5-11.0); Monocyte (Absolute #) 0.56 (0.0-1.3); Monocytes % 4.8 % (0.0-12.0); Neutrophil % 65.2 % (36.0-66.0); Platelet Count 318 K/mm3 (150-450); Red Blood Count 4.29 M/mm3 (4.1-5.4); Red Cell Distribution Width 13.4 % (11.5-14.0); White Blood Count 11.6 K/mm3 (4.0-10.5)
[2020-05-31 21:48] LABS: ALBUMIN 4.5 g/dL (3.5-5.0); ALKALINE PHOSPHATASE 91 U/L (38-126); ANION GAP 14.4 MEQ/L (5-15); BLOOD UREA NITROGEN 14 mg/dL (7-17); CHLORIDE 102 mmol/L (98-107); Calcium 9.4 mg/dL (8.4-10.2); Carbon Dioxide 23 mmol/L (22-30); Creatinine 1 0.57 mg/dL (0.52-1.04); EST GLOMERULAR FILTRATION RATE > 60.0 ML/MIN; Glucose 114 mg/dL (74-106); Potassium 3.9 mmol/L (3.5-5.1); SGOT/AST 29 U/L (14-36); SGPT/ALT 38 U/L (0-35); SODIUM 135 mmol/L (137-145); Total Protein 7.9 g/dL (6.3-8.2)
[2020-05-31 21:49] LABS: ACETAMINOPHEN < 10 ug/ml (10-30); ETHYL ALCOHOL < 10 mg/dL (0-10); SALICYLATE < 1.0 mg/dL (2-20)
--- NOTE | 2020-05-31 21:51 | ERPHSYRPT ---
- History of Present Illness Source: patient Exam Limitations: no limitations Patient Subjective Stated Complaint: pt states that she was discharged from [facility] last wednesday, pt states "I had 3 breakdowns todays", "I have suicidal ideation with no plan", pt states that she has history of PTSD that attributed to her breakdowns today, pt states that she has had SI in the past Triage Nursing Assessment: pt ambulated into the er, pt is axo x4, c/o SI, states "3 breakdowns today and SI with no plan", pts behavior is calm, cooperative, appropriate and relaxed, clear speech, clear lung sounds in all lobes, clear heart tones, hypertensive Physician History: 19 yo wf w suicidal ideation. Pt has no plan. She was released from [facility] 1 week ago. Timing/Duration: today Severity of Symptoms-Max: moderate Severity of Symptoms-Current: moderate Context related to: other Suicidal thoughts: other (Ideation) Associated Symptoms: depressed, frustrated Previous symptoms: same symptoms as today Allergies/Adverse Reactions: sweet potato Allergy (Intermediate, Verified 05/31/20 20:39) Hives cephalexin [From Keflex] Adverse Reaction (Intermediate, Verified 05/31/20 20:39) nausea vomiting Home Medications: Albuterol 2.5 mg/3 ml Neb [Proventil 2.5 mg/3 ml Neb] 2.5 mg IH Q4HPRN PRN 04/19/19 [History] Albuterol 8 gm Mdi Hfa [Ventolin Hfa MDI] 18 gm IH Q4H PRN PRN 04/19/19 [History] Sertraline HCl [Zoloft] 150 mg PO HS 04/19/19 [History] Cholecalciferol (Vitamin D3) [Vitamin D] 1,000 unit PO WEEKLY 06/15/19 [History] Quetiapine Fumarate [Seroquel] 50 mg PO HS 06/15/19 [History] Dicyclomine HCl 20 mg [Bentyl 20 mg] 20 mg PO QID PRN 04/27/20 [History] Loratadine 10 mg PO DAILY 04/27/20 [History] Hx Tetanus, Diphtheria Vaccination/Date Given: No Hx Influenza Vaccination/Date Given: No Hx Pneumococcal Vaccination/Date Given: No Immunizations Up to Date: Yes Travel Risk - International Travel Have you traveled outside of the country in past 3 weeks: No - Coronavirus Screening Are you exhibiting any of the following symptoms?: No Close contact with a COVID-19 positive Pt in past 14-21 Days: No - Past Medical History Pertinent Past Medical History: Yes Neurological History: Migraines, Other ENT History: Other Cardiac History: No Pertinent History Respiratory History: Asthma Endocrine Medical History: No Pertinent History Musculoskeletal History: No Pertinent History GI Medical History: Gallbladder Disease History: No Pertinent History Psycho-Social History: Anxiety, Bipolar, Depression Female Reproductive Disorders: Menstrual Problems, Other Other Medical History: ADD,ADHD, Autism,Asburgers syndrome,bipolar,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 PCOS. gender dysphoria. angina. PTSD - Past Surgical History Past Surgical History: Yes Neuro Surgical History: No Pertinent History Cardiac: No Pertinent History Respiratory: No Pertinent History Gastrointestinal: No Pertinent History Genitourinary: No Pertinent History Musculoskeletal: Orthopedic Surgery Female Surgical History: No Pertinent History Other Surgical History: Right knee miniscus repair endoscopy - Social History Smoking Status: Never smoker Exposure to second hand smoke: Yes Drug Use: none Patient Lives Alone: No Significant Family History: no pertinent family hx - Female History Hx Now: No - Review of Systems Constitutional: No Symptoms Eyes: No Symptoms Ears, Nose, & Throat: No Symptoms Respiratory: No Symptoms Cardiac: No Symptoms Abdominal/Gastrointestinal: No Symptoms Genitourinary Symptoms: No Symptoms Musculoskeletal: No Symptoms Skin: No Symptoms Neurological: No Symptoms Endocrine: No Symptoms Hematologic/Lymphatic: No Symptoms Immunological/Allergic: No Symptoms - Nursing Vital Signs Nursing Vital Signs: Initial Vital Signs Temperature 98.3 F 05/31/20 20:42 Pulse Rate 107 H 05/31/20 20:42 Respiratory Rate 14 05/31/20 20:42 Blood Pressure 153/96 05/31/20 20:42 O2 Sat by Pulse Oximetry 97 05/31/20 20:42 Pain Scale Pain Intensity 0 - Physical Exam General Appearance: no apparent distress Eyes, Ears, Nose, Throat Exam: normal ENT inspection, TMs normal, pharynx normal Neck Exam: normal inspection, non-tender, supple, full range of motion, No Brudzinski, No Kernig's Respiratory Exam: normal breath sounds, lungs clear, airway intact, No respiratory distress Cardiovascular Exam: tachycardia (Mild), No murmur Gastrointestinal/Abdominal Exam: soft, normal bowel sounds, No tenderness Extremities Exam: normal inspection, normal range of motion, No evidence of injury Current Suicidality: denies suicide plan Neurological Exam: alert, normal mood/affect, resin remover II-XII nml as tested, oriented x 3, responds to pain Appearance: appropriate appearance, denies illness Behavior/Eye Contact/Speech: alert & cooperative, cooperative, good eye contact, normal speech Thoughts/Hallucinations: normal thought pattern, no apparent hallucination, No auditory hallucinations Skin Exam: normal color, warm, dry, No rash SpO2 Interpretation: normal SpO2: 98 O2 Delivery: Room Air - Course Nursing assessment & vital signs reviewed: Yes Ordered Tests: Active Orders 24 hr Category Date Time Status Psychiatric Consult STAT Cons 05/31/20 21:08 Active ACETAMINOPHEN Stat Lab 05/31/20 21:25 Completed CBC W DIFF Stat Lab 05/31/20 21:25 Completed CMP Stat Lab 05/31/20 21:25 Completed ETHYL ALCOHOL Stat Lab 05/31/20 21:25 Completed HCG QUALITATIVE,SERUM Stat Lab 05/31/20 21:25 Completed SALICYLATE Stat Lab 05/31/20 21:25 Completed UA W/RFX UR CULTURE Stat Lab 05/31/20 22:10 Completed Urine Triage Profile Stat Lab 05/31/20 22:10 Completed Lab/Rad Data: Laboratory Result Diagrams 05/31/20 21:25 05/31/20 21:25 Laboratory Results 05/31/20 05/31/20 05/31/20 Range/Units 22:10 22:10 21:25 WBC (4.0-10.5) K/mm3 RBC (4.1-5.4) M/mm3 Hgb (12.0-16.0) gm/dl Hct (35-47) % MCV (78-100) fl MCH (26-32) pg MCHC (32-36) g/dl RDW (11.5-14.0) % Plt Count (150-450) K/mm3 MPV (7.5-11.0) fl Gran % (36.0-66.0) % Eos # (Auto) (0-0.5) Absolute Lymphs (auto) (1.0-4.6) Absolute Monos (auto) (0.0-1.3) Lymphocytes % (24.0-44.0) % Monocytes % (0.0-12.0) % Eosinophils % (0.00-5.0) % Basophils % (0.0-0.4) % Absolute Granulocytes (1.4-6.9) Basophils # (0-0.4) Sodium (137-145) mmol/L Potassium (3.5-5.1) mmol/L Chloride (98-107) mmol/L Carbon Dioxide (22-30) mmol/L Anion Gap (5-15) MEQ/L BUN (7-17) mg/dL Creatinine (0.52-1.04) mg/dL Estimated GFR ML/MIN Glucose (74-106) mg/dL Calcium (8.4-10.2) mg/dL Total Bilirubin (0.2-1.3) mg/dL AST (14-36) U/L ALT (0-35) U/L Alkaline Phosphatase (38-126) U/L Serum Total Protein (6.3-8.2) g/dL Albumin (3.5-5.0) g/dL Serum , Qual NEGATIVE (Negative) Urine Color YELLOW (YELLOW) Urine Appearance SLIGHTLY CLOUDY (CLEAR) Urine pH 5.0 (5-6) Ur Specific Irving 1.019 (1.005-1.025) Urine Protein NEGATIVE (Negative) Urine Ketones NEGATIVE (NEGATIVE) Urine Blood NEGATIVE (0-5) Wade/ul Urine Nitrite NEGATIVE (NEGATIVE) Urine Bilirubin NEGATIVE (NEGATIVE) Urine Urobilinogen 2 (0-1) mg/dL Ur Leukocyte Esterase NEGATIVE (NEGATIVE) Urine WBC (Auto) NONE (0-5) /HPF Urine RBC (Auto) 0-2 (0-2) /HPF U Epithel Cells (Auto) RARE (FEW) /HPF Urine Bacteria (Auto) NONE (NEGATIVE) /HPF Urine Mucus (Auto) SLIGHT (NEGATIVE) /HPF Urine Culture Reflexed NO (NO) Urine Glucose NEGATIVE (NEGATIVE) mg/dL Salicylates (2-20) mg/dL Urine Opiates Level NEGATIVE (NEGATIVE) Ur Methadone NEGATIVE (NEGATIVE) Acetaminophen (10-30) ug/ml Urine Barbiturates NEGATIVE (NEGATIVE) Ur Phencyclidine (PCP) NEGATIVE (NEGATIVE) Urine Amphetamine NEGATIVE (NEGATIVE) U Benzodiazepine Level NEGATIVE (NEGATIVE) Urine Cocaine NEGATIVE (NEGATIVE) Urine Marijuana (THC) NEGATIVE (NEGATIVE) Ethyl Alcohol (0-10) mg/dL 05/31/20 05/31/20 Range/Units 21:25 21:25 WBC 11.6 H (4.0-10.5) K/mm3 RBC 4.29 (4.1-5.4) M/mm3 Hgb 12.4 (12.0-16.0) gm/dl Hct 37.4 (35-47) % MCV 87.2 (78-100) fl MCH 28.9 (26-32) pg MCHC 33.2 (32-36) g/dl RDW 13.4 (11.5-14.0) % Plt Count 318 (150-450) K/mm3 MPV 9.2 (7.5-11.0) fl Gran % 65.2 (36.0-66.0) % Eos # (Auto) 0.35 (0-0.5) Absolute Lymphs (auto) 3.08 (1.0-4.6) Absolute Monos (auto) 0.56 (0.0-1.3) Lymphocytes % 26.5 (24.0-44.0) % Monocytes % 4.8 (0.0-12.0) % Eosinophils % 3.0 (0.00-5.0) % Basophils % 0.5 (0.0-0.4) % Absolute Granulocytes 7.57 H (1.4-6.9) Basophils # 0.06 (0-0.4) Sodium 135 L (137-145) mmol/L Potassium 3.9 (3.5-5.1) mmol/L Chloride 102 (98-107) mmol/L Carbon Dioxide 23 (22-30) mmol/L Anion Gap 14.4 (5-15) MEQ/L BUN 14 (7-17) mg/dL Creatinine 0.57 (0.52-1.04) mg/dL Estimated GFR > 60.0 ML/MIN Glucose 114 H (74-106) mg/dL Calcium 9.4 (8.4-10.2) mg/dL Total Bilirubin 0.30 (0.2-1.3) mg/dL AST 29 (14-36) U/L ALT 38 H (0-35) U/L Alkaline Phosphatase 91 (38-126) U/L Serum Total Protein 7.9 (6.3-8.2) g/dL Albumin 4.5 (3.5-5.0) g/dL Serum , Qual (Negative) Urine Color (YELLOW) Urine Appearance (CLEAR) Urine pH (5-6) Ur Specific Irving (1.005-1.025) Urine Protein (Negative) Urine Ketones (NEGATIVE) Urine Blood (0-5) Wade/ul Urine Nitrite (NEGATIVE) Urine Bilirubin (NEGATIVE) Urine Urobilinogen (0-1) mg/dL Ur Leukocyte Esterase (NEGATIVE) Urine WBC (Auto) (0-5) /HPF Urine RBC (Auto) (0-2) /HPF U Epithel Cells (Auto) (FEW) /HPF Urine Bacteria (Auto) (NEGATIVE) /HPF Urine Mucus (Auto) (NEGATIVE) /HPF Urine Culture Reflexed (NO) Urine Glucose (NEGATIVE) mg/dL Salicylates < 1.0 L (2-20) mg/dL Urine Opiates Level (NEGATIVE) Ur Methadone (NEGATIVE) Acetaminophen < 10 L (10-30) ug/ml Urine Barbiturates (NEGATIVE) Ur Phencyclidine (PCP) (NEGATIVE) Urine Amphetamine (NEGATIVE) U Benzodiazepine Level (NEGATIVE) Urine Cocaine (NEGATIVE) Urine Marijuana (THC) (NEGATIVE) Ethyl Alcohol < 10 (0-10) mg/dL - Progress Progress Note: 06/01/20 01:47 Pt accepted by [facility] 06/01/20 02:43 Counseled pt/family regarding: lab results, diagnosis - Departure Departure Disposition: Transfer Clinical Impression: Suicidal ideation Condition: Stable Critical Care Time: No Referrals: JAGDEEP DESHPANDE [Primary Care Provider] -
[2020-05-31 22:21] LABS: Appearance SLIGHTLY CLOUDY (CLEAR); Bilirubin NEGATIVE (NEGATIVE); Blood NEGATIVE Ery/ul (0-5); Epithelial Cells RARE /HPF (FEW); Glucose NEGATIVE (NEGATIVE); Ketones NEGATIVE (NEGATIVE); Leukocyte Esterase NEGATIVE (NEGATIVE); Mucus SLIGHT /HPF (NEGATIVE); Nitrite NEGATIVE (NEGATIVE); Protein,Urine Dip NEGATIVE (Negative); RBC 0-2 /HPF (0-2); Specific Gravity 1.019 (1.005-1.025); Urobilinogen 2 mg/dL (0-1)
[2020-05-31 22:33] LABS: Amphetamine,Urine NEGATIVE (NEGATIVE); Barbiturate,Urine NEGATIVE (NEGATIVE); Benzodiazepine,Urine NEGATIVE (NEGATIVE); Cocaine,Urine NEGATIVE (NEGATIVE); Methadone,Urine NEGATIVE (NEGATIVE); Opiate,Urine NEGATIVE (NEGATIVE); PCP,Urine NEGATIVE (NEGATIVE); THC,Urine NEGATIVE (NEGATIVE)
[2020-06-01 03:39] VITALS: BP 132/90; PULSE 90; O2SAT 99
== END 2020-06-01 03:37 ==
LOC: ED 20:27
DX: R45.851 Suicidal ideations (principal); Z79.899 Other long term (current) drug therapy
CPT/HCPCS: 36415; 80053; 80307; 81001; 81025; 85025; 99285; G0480

== ENCOUNTER 2021-01-10 15:43 | Emergency (ER) | payer OTHER ==
--- NOTE | 2021-01-10 15:51 | ERPHSYRPT ---
- History of Present Illness Time Seen by Provider: 01/10/21 15:51 Source: patient Exam Limitations: no limitations Physician History: This is a 20-year-old white female who is right-handed and presents with a 2-day history of left wrist pain. She denies any type of injury. The pain is not going away. Occurred: days ago (2) Method of Injury: unknown Quality: aching Severity of Pain-Max: mild Severity of Pain-Current: mild Extremities Pain Location: wrist: left Modifying Factors: Improves With: movement Associated Symptoms: none Allergies/Adverse Reactions: sweet potato Allergy (Intermediate, Verified 01/10/21 15:55) Hives cephalexin [From Keflex] Adverse Reaction (Intermediate, Verified 01/10/21 15:55) nausea vomiting Home Medications: Albuterol 2.5 mg/3 ml Neb [Proventil 2.5 mg/3 ml Neb] 2.5 mg IH Q4HPRN PRN 04/19/19 [History] Albuterol 8 gm Mdi Hfa [Ventolin Hfa MDI] 18 gm IH Q4H PRN PRN 04/19/19 [History] Sertraline HCl [Zoloft] 150 mg PO HS 04/19/19 [History] Cholecalciferol (Vitamin D3) [Vitamin D] 1,000 unit PO WEEKLY 06/15/19 [History] Quetiapine Fumarate [Seroquel] 50 mg PO HS 06/15/19 [History] Dicyclomine HCl 20 mg [Bentyl 20 mg] 20 mg PO QID PRN 04/27/20 [History] Loratadine 10 mg PO DAILY 04/27/20 [History] Hx Tetanus, Diphtheria Vaccination/Date Given: No Hx Influenza Vaccination/Date Given: No Hx Pneumococcal Vaccination/Date Given: No Travel Risk - International Travel Have you traveled outside of the country in past 3 weeks: No - Coronavirus Screening Are you exhibiting any of the following symptoms?: No Close contact with a COVID-19 positive Pt in past 14-21 Days: No - Vaccine Status Have you recieved a Covid-19 vaccination: No - Review of Systems Constitutional: No Symptoms Eyes: No Symptoms Ears, Nose, & Throat: No Symptoms Respiratory: No Symptoms Cardiac: No Symptoms Abdominal/Gastrointestinal: No Symptoms Genitourinary Symptoms: No Symptoms Musculoskeletal: Joint Pain (Left wrist), No Deformity, No Fall, No Injury, No Joint Redness, No Joint Swelling Skin: No Symptoms Neurological: No Symptoms Psychological: No Symptoms Endocrine: No Symptoms Hematologic/Lymphatic: No Symptoms Immunological/Allergic: No Symptoms All Other Systems: Reviewed and Negative - Past Medical History Pertinent Past Medical History: Yes Neurological History: Migraines, Other ENT History: Other Cardiac History: No Pertinent History Respiratory History: Asthma Endocrine Medical History: No Pertinent History Musculoskeletal History: No Pertinent History GI Medical History: Gallbladder Disease History: No Pertinent History Psycho-Social History: Anxiety, Bipolar, Depression Female Reproductive Disorders: Menstrual Problems, Other Other Medical History: ADD,ADHD, Autism,Asburgers syndrome,bipolar,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 PCOS. gender dysphoria. angina. PTSD - Past Surgical History Past Surgical History: Yes Neuro Surgical History: No Pertinent History Cardiac: No Pertinent History Respiratory: No Pertinent History Gastrointestinal: No Pertinent History Genitourinary: No Pertinent History Musculoskeletal: Orthopedic Surgery Female Surgical History: No Pertinent History Other Surgical History: Right knee miniscus repair endoscopy - Social History Smoking Status: Never smoker Exposure to second hand smoke: Yes Drug Use: none Patient Lives Alone: No Significant Family History: no pertinent family hx - Nursing Vital Signs Nursing Vital Signs: Initial Vital Signs Temperature 97.0 F 01/10/21 15:49 Pulse Rate 83 01/10/21 15:49 Respiratory Rate 16 01/10/21 15:49 Blood Pressure 140/99 01/10/21 15:49 O2 Sat by Pulse Oximetry 95 01/10/21 15:49 Pain Scale Pain Intensity 9 - Physical Exam General Appearance: no apparent distress, alert Eyes, Ears, Nose, Throat Exam: normal ENT inspection, moist mucous membranes Neck Exam: normal inspection, non-tender, supple, full range of motion Cardiovascular/Respiratory Exam: chest non-tender, no respiratory distress Abdominal Exam: non-tender Back Exam: normal inspection, normal range of motion, No CVA tenderness, No vertebral tenderness Shoulder Exam: normal inspection, non-tender, no evidence of injury, normal ROM Elbow/Forearm Exam: normal inspection, non-tender, no evidence of injury, normal ROM Wrist Exam: normal inspection, non-tender, no evidence of injury, normal ROM Hand Exam: normal inspection, non-tender, no evidence of injury, normal ROM Neuro/Tendon Exam: normal sensation, normal motor functions, normal tendon functions Mental Status Exam: alert, oriented x 3, cooperative Skin Exam: normal color, warm, dry SpO2 Interpretation: normal O2 Delivery: Room Air - Course Nursing assessment & vital signs reviewed: Yes Ordered Tests: Active Orders 24 hr Category Date Time Status WRIST (MIN 3 VIEWS) Stat Exams 01/10/21 16:33 Taken - Progress Progress: unchanged Progress Note: 01/10/21 16:44 X-ray of left wrist shows no acute fracture or dislocation. Counseled pt/family regarding: diagnosis, need for follow-up, rad results - Departure Departure Disposition: Home Clinical Impression: Left wrist pain Condition: Stable Critical Care Time: No Referrals: JAGDEEP DESHPANDE [Primary Care Provider] - Additional Instructions: Ice pack to left wrist 3 times a day for the next 48 hours. Use Tylenol and ibuprofen for pain control. Follow-up with your primary care physician for persistent pain.
--- NOTE | 2021-01-10 16:50 | XRAY ---
Indication: Pain. No known injury. Comparison: None 3 view left wrist obtained. No bony, articular, or soft tissue abnormalities.
[2021-01-10 17:04] VITALS: BP 118/75; PULSE 70; O2SAT 97
== END 2021-01-10 17:06 | disposition home or self-care (01) ==
LOC: ED 15:43
DX: M25.532 Pain in left wrist (principal)
CPT/HCPCS: 73110; 99283

== ENCOUNTER 2022-04-16 13:39 | Emergency (ER) | payer OTHER ==
[2022-04-16 13:53] VITALS: BP 153/99; PULSE 78; O2SAT 98
--- NOTE | 2022-04-16 14:09 | ERPHSYRPT ---
- History of Present Illness Time Seen by Provider: 04/16/22 13:45 Source: patient Exam Limitations: no limitations Patient Subjective Stated Complaint: Laceration to palm of left hand Triage Nursing Assessment: Patient ambulated back to ED and tranferred self to bed. Patient A+O X 3. Patient's skin pink, warm and dry. Patient states she was cutting boxes using a hot box spotter when it slipped in her hand cutting the palm of left hand. Patient has 0.3cm skin flap noted to palm of left hand with bleeding controlled. Patient complains of pain 05/23. Physician History: 21 years old right-handed dominant female presented to the ER with chief complaint of laceration left palm while she was opening boxes with a hot box spotter with slipped and accidentally cut her superficial laceration. There was bleeding initially but stopped with applying pressure. No difficulty movements of fingers or numbness in the fingers. Up-to-date with tetanus. Complaining of mild to moderate pain with palpation. Timing/Duration: today, sudden Quality: painful Severity: mild, moderate Location: hands Possible Causes: other Allergies/Adverse Reactions: sweet potato Allergy (Intermediate, Verified 04/16/22 13:47) Hives cephalexin [From Keflex] Adverse Reaction (Intermediate, Verified 04/16/22 13:47) nausea vomiting Home Medications: Albuterol 2.5 mg/3 ml Neb [Proventil 2.5 mg/3 ml Neb] 2.5 mg IH Q4HPRN PRN 04/19/19 [History] Albuterol 8 gm Mdi Hfa [Ventolin Hfa MDI] 18 gm IH Q4H PRN PRN 04/19/19 [History] Sertraline HCl [Zoloft] 150 mg PO HS 04/19/19 [History] Cholecalciferol (Vitamin D3) [Vitamin D] 1,000 unit PO WEEKLY 06/15/19 [History] Quetiapine Fumarate [Seroquel] 50 mg PO HS 06/15/19 [History] Dicyclomine HCl 20 mg [Bentyl 20 mg] 20 mg PO QID PRN 04/27/20 [History] Loratadine 10 mg PO DAILY 04/27/20 [History] Hx Tetanus, Diphtheria Vaccination/Date Given: No Hx Influenza Vaccination/Date Given: No Hx Pneumococcal Vaccination/Date Given: No Immunizations Up to Date: Yes Travel Risk - International Travel Have you traveled outside of the country in past 3 weeks: No - Coronavirus Screening Are you exhibiting any of the following symptoms?: No Close contact with a COVID-19 positive Pt in past 14-21 Days: No - Vaccine Status Have you recieved a Covid-19 vaccination: Yes 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[employer] - Vaccination Dates Date of 2cond Vaccination (if applicable): na - Review of Systems Constitutional: No Symptoms Ears, Nose, & Throat: No Symptoms Respiratory: No Symptoms Cardiac: No Symptoms Abdominal/Gastrointestinal: No Symptoms (Low) Genitourinary Symptoms: No Symptoms (Foot) Musculoskeletal: Injury Skin: Skin Lesions Neurological: No Symptoms Psychological: No Symptoms - Past Medical History Pertinent Past Medical History: Yes Neurological History: Migraines ENT History: Other Cardiac History: Angina Respiratory History: Asthma Endocrine Medical History: Other Musculoskeletal History: Other GI Medical History: Gallbladder Disease History: No Pertinent History Psycho-Social History: Anxiety, Bipolar, Depression Female Reproductive Disorders: Menstrual Problems, Other Other Medical History: PCOS, R knee meniscal repair (2016), Scoliosis. Patient reports Bipoloar Disorder and alluded to other psychosocial history and psychiatric stay, but did not elaborate on specific diagnoses. - Past Surgical History Past Surgical History: Yes Neuro Surgical History: No Pertinent History Cardiac: No Pertinent History Respiratory: No Pertinent History Gastrointestinal: No Pertinent History Genitourinary: No Pertinent History Musculoskeletal: Orthopedic Surgery Female Surgical History: No Pertinent History Other Surgical History: Right knee miniscus repair endoscopy - Social History Smoking Status: Never smoker Exposure to second hand smoke: No Drug Use: none Patient Lives Alone: No Significant Family History: no pertinent family hx - Female History Hx Last Menstrual Period: November/ Hx Now: No - Nursing Vital Signs Nursing Vital Signs: Initial Vital Signs Temperature 98.0 F 04/16/22 13:47 Pulse Rate 78 04/16/22 13:47 Respiratory Rate 18 04/16/22 13:47 Blood Pressure 153/99 04/16/22 13:47 O2 Sat by Pulse Oximetry 98 04/16/22 13:47 Pain Scale Pain Intensity 9 - Physical Exam General Appearance: no apparent distress, alert Eye Exam: PERRL/EOMI Neck Exam: normal inspection, full range of motion Respiratory Exam: normal breath sounds, lungs clear Cardiovascular Exam: regular rate/rhythm, normal heart sounds Extremity Exam: lacerations (We shave 0.3/1 3 flap laceration left medial thenar eminence area. SuperficialIntact distal neurovascular. No active bleeding or spurting.), other Skin Exam: normal color SpO2 Interpretation: normal SpO2: 98 O2 Delivery: Room Air Procedures - Laceration/Wound Repair Left Anterior Hand Time of Procedure: 14:17 Wound Location: Left, hand Wound Length (cm): 0.6 Wound's Depth, Shape: superficial Wound Explored: clean Irrigated: Yes Hibiclens Prep: Yes Wound Repaired With: Steri-strips, Dermabond - Progress Progress: improved Progress Note: 04/16/22 14:17 Laceration is clean, repaired with Steri-Strip glue. Tylenol/ibuprofen as needed. Outpatient follow-up. Wound care discussed Counseled pt/family regarding: diagnosis, need for follow-up - Departure Departure Disposition: Home Clinical Impression: Hand laceration Condition: Stable Critical Care Time: No Referrals: JAGDEEP DESHPANDE NP [Primary Care Provider] - Follow Up with PCP/3 days Instructions: Laceration Repair With Glue (DC) Additional Instructions: Tylenol/ibuprofen as needed for pain. Keep it clean. Avoid exertional activity with left hand. Follow-up with primary care for reevaluation. Return to ER for increasing pain swelling redness discharge/fever chills etc.
== END 2022-04-16 15:03 | disposition home or self-care (01) ==
LOC: ED 13:39
DX: S61.412A Laceration without foreign body of left hand, initial encounter (principal); W26.0XXA Contact with knife, initial encounter; M79.642 Pain in left hand; Z79.899 Other long term (current) drug therapy
CPT/HCPCS: 12001; 99281